=== PATIENT | female | born 1930 | race Caucasian/White ===

== ENCOUNTER → 2016-12-02 | Outpatient (CLI) | payer MEDICARE, OTHER ==
--- NOTE | 2016-12-02 12:47 | MR ---
EXAMINATION TYPE: MR lumbar spine wo con DATE OF EXAM: 12/02/2016 11:33 AM COMPARISON: NONE HISTORY: Back pain and leg pain TECHNIQUE: Multiplanar, multisequence images of the lumbar spine were acquired. The rotoscoliotic curvature convex to the left. L1-L2: Severe disc desiccation noted. Moderate circumferential disc bulge greatest posteriorly with h ypertrophy of the ligamentum flavum and facet joint arthropathy resulting in high-grade central steno sis. Bilateral foraminal encroachment noted as well. L2-L3: Severe disc desiccation noted. Moderate circumferential disc bulge greatest posteriorly. Decom pressive laminectomy changes at L3. Effacement of the ventral thecal sac without shannan stenosis at th is time. Grade 1 anterolisthesis of L2 on L3 measuring 6 mm. Bilateral foraminal encroachment. L3-L4: Severe disc desiccation. Decompressive laminectomy changes noted. Posterocentral disc herniati on versus a granulation tissue. Effacement ventral thecal sac and bilateral lateral recess stenosis w ithout central stenosis. Bilateral foraminal encroachment. L4-L5: Moderate to severe disc desiccation. No significant herniation or protrusion. Hypertrophy of t he ligamentum flavum resulting in left lateral recess stenosis. Mild bilateral foraminal encroachment . No central stenosis. L5-S1: Moderate disc desiccation without herniation or bulge. No central stenosis. Facet joint arthro shweta with mild bilateral encroachment. Lumbar segments are intact. No paraspinal masses are identified. Conus medullaris has a normal appe arance. IMPRESSION: 1. Multilevel degenerative disc disease. 2. 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 3. Multilevel foraminal encroachment and lateral recess stenosis. See above.
== END | disposition home or self-care (01) ==
LOC: RADMRIMAIN 10:15
PROVIDERS: ATTEND Internal Medicine
DX: M48.06 Spinal stenosis, lumbar region (principal); M51.36 Other intervertebral disc degeneration, lumbar region; M99.73 Connective tissue and disc stenosis of intervertebral foramina of lumbar region
CPT/HCPCS: 72148

== ENCOUNTER → 2016-12-04 | Outpatient (CLI) | payer MEDICARE, OTHER ==
--- NOTE | 2016-12-04 17:28 | XR ---
EXAMINATION TYPE: XR chest 2V DATE OF EXAM: 12/04/2016 5:08 PM COMPARISON: 08/28/2015 HISTORY: Short of breath TECHNIQUE: Frontal and lateral views of the chest are obtained. FINDINGS: There is no heart failure nor confluent pneumonic infiltrate. There are no hilar masses. T horacic aorta is atheromatous. The bony thorax is intact. There is mild spurring in the thoracic spin e. IMPRESSION: No active cardiopulmonary disease. No change.
[2016-12-04 18:01] LABS: Calcium 9.6 mg/dL (8.4-10.2); Potassium 5.1 mmol/L (3.5-5.1)
== END | disposition home or self-care (01) ==
LOC: RADXRMAIN 16:45
PROVIDERS: ATTEND Nurse Practitioner Adult Health
DX: R06.02 Shortness of breath (principal); I10 Essential (primary) hypertension
CPT/HCPCS: 71020; 80048; 83880

== ENCOUNTER → 2017-02-10 | Outpatient (CLI) | payer MEDICARE, OTHER ==
--- NOTE | 2017-02-10 22:23 | US ---
EXAMINATION TYPE: US venous doppler duplex LE LT DATE OF EXAM: 02/10/2017 4:25 PM COMPARISON: NONE CLINICAL HISTORY: 87-year-old female lower left pain M79.662, Swelling R22.42. SIDE PERFORMED: Left TECHNIQUE: The lower extremity deep venous system is examined utilizing real time linear array sonog armando with graded compression, doppler sonography and color-flow sonography. FINDINGS: VESSELS IMAGED: External Iliac Vein (EIV) Common Femoral Vein Deep Femoral Vein Greater Saphenous Vein * Femoral Vein Popliteal Vein Small Saphenous Vein *-not seen Proximal Calf Veins (* superficial vessels) Left Leg: Appears negative for DVT IMPRESSION: No evidence for DVT within the left lower extremity imaged from the groin to the upper calf.
== END | disposition home or self-care (01) ==
LOC: RADUSWWP 15:47
PROVIDERS: ATTEND Physical Medicine & Rehabilitation
DX: R22.42 Localized swelling, mass and lump, left lower limb (principal); M79.662 Pain in left lower leg

== ENCOUNTER 2017-11-27 17:18 | Inpatient (IN) | payer MEDICARE, OTHER ==
[2017-11-27] MEDS ORDERED: PANTOPRAZOLE 40 MG/10 ML VIAL IVP STA (19:11)
[2017-11-27] MEDS ORDERED: SODIUM CHLORIDE 0.9% 1,000 ML IV STA (19:11)
--- NOTE | 2017-11-27 19:13 | ED ---
GI Bleed HPI - General Chief complaint: GI Bleed Stated complaint: RECTAL BLEEDING Time Seen by Provider: 11/27/17 18:52 Source: patient, RN/MD, RN notes reviewed Mode of arrival: wheelchair Limitations: no limitations - History of Present Illness Initial comments: This is a 87-year-old female with no prior history of GI bleed who had the onset yesterday of rectal bleeding and more today. He states was bright red blood. She has lower crampy abdominal pain is moderate in severity no nausea vomiting fevers chills sweats or other symptoms. She was seen by her doctor today and the office he did perform a rectal exam was was indicative of a lower GI bleed. The concern is possibly for diverticular etiology. No other complaints he did have no complaints of lightheadedness dizziness or generalized weakness at this time. She states the pain is dull and achy at this time. No dysuria no hematuria. MD complaint: gross hematochezia - Related Data Home Medications Medication Instructions Recorded Confirmed Calcium Carbonate/Vitamin D3 1 tab PO DAILY@1200 08/27/15 11/27/17 [Calcium 600-Vit D3 400 Tablet] Darifenacin Hydrobromide [Enablex] 15 mg PO DAILY@2200 08/27/15 11/27/17 Enalapril [Vasotec] 2.5 mg PO DAILY@1200 08/27/15 11/27/17 Metoprolol Succinate [Toprol XL] 25 mg PO DAILY@1730 08/27/15 11/27/17 Furosemide [Lasix] 20 mg PO BID@0700,1730 11/27/17 11/27/17 Insulin Lispro Protamin/Lispro 17 unit SQ DAILY@1800 11/27/17 11/27/17 [humaLOG Mix 75-25 Kwikpen] Insulin Lispro Protamin/Lispro 20 unit SQ QAM 11/27/17 11/27/17 [humaLOG Mix 75-25 Kwikpen] Metoprolol Succinate (ER) [Toprol 50 mg PO DAILY@0700 11/27/17 11/27/17 XL] Spironolactone [Aldactone] 12.5 mg PO DAILY@0700 11/27/17 11/27/17 Warfarin [Coumadin] 5 mg PO DAILY@2200 02/16/18 02/16/18 Previous Rx's Medication Instructions Recorded Pravastatin Sodium [Pravachol] 40 mg PO DAILY@1730 tab 08/29/15 Allergies Allergy/AdvReac Type Severity Reaction Status Date / Time No Known Allergies Allergy Verified 11/27/17 19:09 Review of Systems ROS Statement: Those systems with pertinent positive or pertinent negative responses have been documented in the HPI. ROS Other: All systems not noted in ROS Statement are negative. Past Medical History Past Medical History: Atrial Fibrillation, Diabetes Mellitus, Hyperlipidemia, Hypertension, Osteoarthritis (OA) Additional Past Medical History / Comment(s): 06-27-15 UTI-E COLI/PROTEUS MIRABILIS, BACK PAIN, LUMBAR RADICULOPATHY L3, MIGRAINES, CONGENTIAL HEART MURMUR(NEEDS PROPHYLACTIC ABX), BOWEL INFECTION POST COLONOSCOPY 2003, STRESS INCONT OF URINE History of Any Multi-Drug Resistant Organisms: None Reported Past Surgical History: Adenoidectomy, Appendectomy, Back Surgery, Bladder Surgery, Tonsillectomy Additional Past Surgical History / Comment(s): .T hip REPLACEMNT,LT knee replacement, LAMINECTOMY, EPIDURAL INJECTIONS, ADAMARIS CATARACTS,SPURS REMOVED FROM SPINE. Past Anesthesia/Blood Transfusion Reactions: No Reported Reaction Past Psychological History: No Psychological Hx Reported Smoking Status: Never smoker Past Alcohol Use History: None Reported Past Drug Use History: None Reported - Past Family History Father Family Medical History: Seizure Disorder Mother Family Medical History: Congestive Heart Failure (CHF), Diabetes Mellitus General Exam - General Exam Comments Initial Comments: This is a well-developed well-nourished awake alert oriented 3 female Limitations: no limitations General appearance: alert, in no apparent distress Head exam: Present: atraumatic, normocephalic, normal inspection Eye exam: Present: normal appearance, PERRL, EOMI. Absent: scleral icterus, conjunctival injection, periorbital swelling ENT exam: Present: normal exam, mucous membranes moist Neck exam: Present: normal inspection. Absent: tenderness, meningismus, lymphadenopathy Respiratory exam: Present: normal lung sounds bilaterally. Absent: respiratory distress, wheezes, rales, rhonchi, stridor Cardiovascular Exam: Present: regular rate, normal rhythm, normal heart sounds. Absent: systolic murmur, diastolic murmur, rubs, gallop, clicks GI/Abdominal exam: Present: soft, tenderness (Very mild lower abdominal tenderness no guarding rebound), normal bowel sounds. Absent: distended, guarding, rebound, rigid, bruit, pulsatile mass, hernia Rectal exam: Present: deferred Extremities exam: Present: normal inspection, full ROM, normal capillary refill. Absent: tenderness, pedal edema, joint swelling, calf tenderness Back exam: Present: normal inspection Neurological exam: Present: alert, oriented X3, CN II-XII intact Psychiatric exam: Present: normal affect, normal mood Skin exam: Present: warm, dry, intact, normal color. Absent: rash Course Vital Signs 11/27/17 11/27/17 11/27/17 17:35 19:30 20:45 Temperature 97.4 F L 97.6 F Pulse Rate 61 71 81 Respiratory 16 18 18 Rate Blood Pressure 107/47 123/70 108/53 O2 Sat by Pulse 98 99 98 Oximetry Medical Decision Making - Medical Decision Making I did discuss findings with the patient had virtually discuss case with Dr. Bocanegra patient be admitted she does demonstrate an elevated INR she'll be placed on 2.5 mg of vitamin K by mouth we will hold her Coumadin tonight and check her hemoglobin every 6 hours. - Lab Data Result diagrams: 11/27/17 19:35 11/27/17 19:35 Lab Results 11/27/17 11/27/17 11/27/17 Range/Units 19:35 19:35 19:35 WBC 12.3 H (3.8-10.6) k/uL RBC 4.42 (3.80-5.40) m/uL Hgb 13.7 (11.4-16.0) gm/dL Hct 41.5 (34.0-46.0) % MCV 94.0 (80.0-100.0) fL MCH 30.9 (25.0-35.0) pg MCHC 32.9 (31.0-37.0) g/dL RDW 12.9 (11.5-15.5) % Plt Count 218 (150-450) k/uL Neutrophils % 70 % Lymphocytes % 20 % Monocytes % 7 % Eosinophils % 2 % Basophils % 0 % Neutrophils # 8.6 H (1.3-7.7) k/uL Lymphocytes # 2.4 (1.0-4.8) k/uL Monocytes # 0.8 (0-1.0) k/uL Eosinophils # 0.3 (0-0.7) k/uL Basophils # 0.0 (0-0.2) k/uL PT (9.0-12.0) sec INR (<1.2) APTT (22.0-30.0) sec Sodium 138 (137-145) mmol/L Potassium 4.3 (3.5-5.1) mmol/L Chloride 97 L (98-107) mmol/L Carbon Dioxide 29 (22-30) mmol/L Anion Gap 12 mmol/L BUN 29 H (7-17) mg/dL Creatinine 1.66 H (0.52-1.04) mg/dL Est GFR (MDRD) Af Amer 35 (>60 ml/min/1.73 sqM) Est GFR (MDRD) Non-Af 29 (>60 ml/min/1.73 sqM) Glucose 133 H (74-99) mg/dL Calcium 10.7 H (8.4-10.2) mg/dL Total Bilirubin 0.9 (0.2-1.3) mg/dL AST 29 (14-36) U/L ALT 29 (9-52) U/L Alkaline Phosphatase 91 (38-126) U/L Total Creatine Kinase 104 (30-135) U/L CK-MB (CK-2) 1.4 (0.0-2.4) ng/mL CK-MB (CK-2) Rel Index 1.3 Troponin I 0.013 (0.000-0.034) ng/mL Total Protein 7.0 (6.3-8.2) g/dL Albumin 4.1 (3.5-5.0) g/dL Blood Type Blood Type Recheck Antibody Screen Spec Expiration Date 11/27/17 11/27/17 Range/Units 19:35 19:35 WBC (3.8-10.6) k/uL RBC (3.80-5.40) m/uL Hgb (11.4-16.0) gm/dL Hct (34.0-46.0) % MCV (80.0-100.0) fL MCH (25.0-35.0) pg MCHC (31.0-37.0) g/dL RDW (11.5-15.5) % Plt Count (150-450) k/uL Neutrophils % % Lymphocytes % % Monocytes % % Eosinophils % % Basophils % % Neutrophils # (1.3-7.7) k/uL Lymphocytes # (1.0-4.8) k/uL Monocytes # (0-1.0) k/uL Eosinophils # (0-0.7) k/uL Basophils # (0-0.2) k/uL PT 66.0 H (9.0-12.0) sec INR 7.2 H* (<1.2) APTT 41.9 H (22.0-30.0) sec Sodium (137-145) mmol/L Potassium (3.5-5.1) mmol/L Chloride (98-107) mmol/L Carbon Dioxide (22-30) mmol/L Anion Gap mmol/L BUN (7-17) mg/dL Creatinine (0.52-1.04) mg/dL Est GFR (MDRD) Af Amer (>60 ml/min/1.73 sqM) Est GFR (MDRD) Non-Af (>60 ml/min/1.73 sqM) Glucose (74-99) mg/dL Calcium (8.4-10.2) mg/dL Total Bilirubin (0.2-1.3) mg/dL AST (14-36) U/L ALT (9-52) U/L Alkaline Phosphatase (38-126) U/L Total Creatine Kinase (30-135) U/L CK-MB (CK-2) (0.0-2.4) ng/mL CK-MB (CK-2) Rel Index Troponin I (0.000-0.034) ng/mL Total Protein (6.3-8.2) g/dL Albumin (3.5-5.0) g/dL Blood Type A Positive Blood Type Recheck A Pos Antibody Screen NEGATIVE Spec Expiration Date 11/30/2017 - 0177 - Radiology Data Radiology results: report reviewed (I did review the imaging and reports no acute findings.), image reviewed Disposition Clinical Impression: GI bleed, Coumadin toxicity Disposition: ADMITTED IP TO THIS [facility] Condition: Stable Referrals: Garcia Bocanegra MD [Primary Care Provider] - 1-2 days
[2017-11-27 19:43] LABS: Basophils % (A) 0 %; Eosinophils # (A) 0.3 k/uL (0-0.7); Eosinophils % (A) 2 %; HCT 41.5 % (34.0-46.0); HGB 13.7 gm/dL (11.4-16.0); Lymphocytes # (A) 2.4 k/uL (1.0-4.8); Lymphocytes % (A) 20 %; MCH 30.9 pg (25.0-35.0); MCHC 32.9 g/dL (31.0-37.0); Mean Platelet Volume 7.9; Monocytes # (A) 0.8 k/uL (0-1.0); Monocytes % (A) 7 %; Neutrophils # (A) 8.6 k/uL (1.3-7.7); Neutrophils % (A) 70 %; Platelet Count 218 k/uL (150-450); RBC 4.42 m/uL (3.80-5.40); RDW 12.9 % (11.5-15.5); WBC 12.3 k/uL (3.8-10.6)
[2017-11-27 20:00] LABS: Albumin 4.1 g/dL (3.5-5.0); Calcium 10.7 mg/dL (8.4-10.2); Potassium 4.3 mmol/L (3.5-5.1); Total Bilirubin 0.9 mg/dL (0.2-1.3)
[2017-11-27 20:04] LABS: Partial Thromboplastin Time 41.9 sec (22.0-30.0)
[2017-11-27 20:09] LABS: INR 7.2 (<1.2)
[2017-11-27 20:12] LABS: Creatine Kinase MB 1.4 ng/mL (0.0-2.4); Troponin I 0.013 ng/mL (0.000-0.034)
--- NOTE | 2017-11-27 20:34 | XR ---
EXAMINATION TYPE: XR abdomen acute w cxr DATE OF EXAM: 11/27/2017 COMPARISON: NONE HISTORY: Abdominal pain TECHNIQUE: 4 views FINDINGS: Lungs are clear of consolidation. Heart is probably enlarged. There is no pleural effusion. There is no heart failure. There is thoracolumbar levoscoliosis. Bowel gas pattern is normal. There is no sign of intestinal obstruction or pneumoperitoneum. Fecal pa ttern is normal. There are no pathologic calcifications over the kidneys. I see no sign of a mass. Th ere is a right hip prosthesis. IMPRESSION: Cardiomegaly. No active cardiopulmonary disease. Nonacute abdomen.
[2017-11-27] MEDS ORDERED: PHYTONADIONE ORAL 5 MG/5 ML ORAL.SYRG PO STA (20:47)
[2017-11-27] MEDS ORDERED: NALOXONE 0.4 MG/ML 1 ML VIAL IV PRN (20:54)
[2017-11-27 22:20] LABS: Glucose,Whole Blood 119 mg/dL (75-99)
[2017-11-27 22:28] VITALS: BMI 34.4
[2017-11-27] MEDS: OXYBUTYNIN XL 5 MG TAB.ER.24 PO SCH (22:50)
[2017-11-27] MEDS: SODIUM CHLORIDE 0.9% 1,000 ML IV SCH (22:50)
[2017-11-27] MEDS: INSULIN ASPART 100 UNIT/ML 1 ML 10 ML VIAL SQ SCH (22:51)
[2017-11-27] MEDS: FAMOTIDINE 20 MG TAB PO SCH (22:54)
--- NOTE | 2017-11-28 00:04 | HP ---
HISTORY AND PHYSICAL ATTENDING PHYSICIAN: Dr. Ana M Bocanegra. CHIEF COMPLAINT: Rectal bleeding. HISTORY OF PRESENT ILLNESS: This 87-year-old female presents with a complaint of having rectal bleeding. The patient states she had a bowel movement yesterday which was normal soft stool. It was a fairly good large stool. The caliber was small and stool was soft. The patient later on in the evening had the urge to go have a bowel movement. When she went, it was nothing but blood. The patient said she had another bowel movement this morning which was a small amount, but there was mostly blood. The patient does have some lower abdominal cramping. No other associated symptoms of fever, chills. She has noted her blood sugars to be elevated for the past 2 days. The patient denies any other symptoms, symptoms of chest pain, palpitation, dizziness. PAST MEDICAL HISTORY: Primarily significant for diabetes mellitus for the past 21 years, hypertension for about the same duration, chronic atrial fibrillation. The patient is on anticoagulation with Coumadin. No history of any malignancy, lung disease, liver disease, kidney disease. No history of any ulcers, TB, hepatitis. No history of any diverticulosis, TB, hepatitis, rheumatic fever, myocardial infarction or CVA. Does have degenerative arthritis. Does have some peripheral neuropathy. The patient also has some symptoms of spinal stenosis. PAST SURGICAL HISTORY: Significant for tonsillectomy, appendectomy, bladder suspension surgery, left knee surgery, right total hip arthroplasty, cataract surgery, back surgery and lumbar back surgery. PERSONAL HISTORY: Never smoker. No alcohol. VACCINATION HISTORY: Annual flu vaccination for this season, previous Pneumovax and Zostavax. ALLERGIES: None. MEDICATIONS: Include: 1. Humalog 75/25, 22 units in the morning and 17 units in the evening. 2. Coumadin 5 mg daily. 3. Enablex 15 mg daily. 4. Aldactone 12.5 mg daily. 5. Pravastatin 40 mg daily. 6. Enalapril 2.5 mg daily. 7. Calcium carbonate daily. 8. Metoprolol succinate. The patient takes 25 mg in the evening and 50 mg in the morning. 9. Lasix 20 mg b.i.d. SOCIAL HISTORY: Patient , lives with her spouse. FAMILY MEDICAL HISTORY: Father at age 68. He had a history of epilepsy. Mother at age of 65. She had history of diabetes mellitus, coronary artery disease. A sister at the age of 80. She had history of carcinoma of the lung. A brother at the age of 80, had a history of COPD, diabetes mellitus and CHF. The patient has a son, 68, a history of coronary artery disease. Four daughters in good health. REVIEW OF SYSTEMS: NEURO: Denies any headaches, dizziness. No double vision, blurred vision. No symptoms of TIA, syncope, seizures. PSYCH: No anxiety, depression. CARDIAC: Denies chest pain, angina, palpitation. RESPIRATORY: Denies shortness of breath. Does have dyspnea on exertion with limited activity. No angina, palpitations. Mild cough from recent tracheobronchitis, treated. No chest pain. GI: No nausea, vomiting. Some lower abdominal cramping and bloody stool and rectal bleeding. : No symptoms of dysuria, hematuria. Does have frequency, urgency, incontinence. No vaginal bleeding. EXTREMITIES: Some chronic pain, lower extremities. Chronic arthritic pains in the knee joints. CONSTITUTIONAL: No fever, chills. HEMATOLOGICAL: Bleeding. ENDOCRINE: Blood sugars elevated the past 2 days. PHYSICAL EXAMINATION: Pleasant female in no distress. Vital signs revealed temperature 97.4, pulse 61, respirations 16, blood pressure 107/47, pulse ox of 98% on room air. HEENT: Normocephalic. Pupils are reactive. Nostrils clear. Oral cavity is moist. Neck reveals no JVD, carotid bruits, thyromegaly. CHEST: Clear to auscultation, percussion. CARDIAC: Irregularly irregular rhythm. Systolic murmur 2/6 at apex. Distant heart sounds. ABDOMEN: Protuberant, soft. Bowel sounds active. Umbilical hernia present. Rectal reveals normal sphincter tone. Small amount of stool in the rectum, but the patient has significant blood on the finger. Extremities reveal chronic trace edema. NEUROLOGIC: Awake, alert, oriented, well-coordinated movements. LABORATORY ASSESSMENT: A CBC which shows a white count of 12.3, hemoglobin 13.7. INR was 7.2. BUN 29, creatinine 1.66, glucose 133, calcium 10.7. Normal hepatic enzymes. Normal troponin. Albumin 4.1. Chest x-ray reveals cardiomegaly, no active cardiopulmonary disease and abdomen was unremarkable. ASSESSMENT: 1. Lower gastrointestinal bleeding, probably diverticular bleed. 2. Hyper anticoagulated status. 3. History of chronic atrial fibrillation. 4. Diabetes mellitus. 5. Coronary artery disease. 6. Chronic urinary incontinence. PLAN: The patient at present is stable. Continue present medical regimen. Patient's condition discussed with the patient and spouse. The patient will be hydrated. CBC will be followed. May require lower colon evaluation only if she continues to bleed significantly. At her age, it would be difficult for a colonoscopic exam. The patient's condition discussed with the patient and spouse. Prognosis guarded. MMODL / IJN: [id number] /
[2017-11-28 06:17] LABS: Glucose,Whole Blood 143 mg/dL (75-99)
[2017-11-28] MEDS: INSULIN ASPART 100 UNIT/ML 1 ML 10 ML VIAL SQ SCH ×4 (06:45→20:59)
[2017-11-28] MEDS: SPIRONOLACTONE 25 MG TAB PO SCH (06:46)
[2017-11-28] MEDS: METOPROLOL SUCCINATE (ER) 50 MG TAB.ER.24H PO SCH ×2 (06:46→17:35)
[2017-11-28 06:48] LABS: INR 4.3 (<1.2); Prothrombin Time 38.6 sec (9.0-12.0)
[2017-11-28 06:50] LABS: Basophils % (A) 1 %; Eosinophils # (A) 0.3 k/uL (0-0.7); Eosinophils % (A) 3 %; HCT 36.8 % (34.0-46.0); HGB 11.9 gm/dL (11.4-16.0); Lymphocytes % (A) 25 %; MCH 30.8 pg (25.0-35.0); MCHC 32.3 g/dL (31.0-37.0); MCV 95.2 fL (80.0-100.0); Mean Platelet Volume 8.1; Monocytes # (A) 0.6 k/uL (0-1.0); Monocytes % (A) 7 %; Neutrophils # (A) 5.2 k/uL (1.3-7.7); Neutrophils % (A) 62 %; Platelet Count 179 k/uL (150-450); RBC 3.86 m/uL (3.80-5.40); RDW 13.1 % (11.5-15.5); WBC 8.3 k/uL (3.8-10.6)
[2017-11-28] MEDS ORDERED: FUROSEMIDE 20 MG TAB PO SCH (07:00)
[2017-11-28] MEDS: SODIUM CHLORIDE 0.9% 1,000 ML IV SCH ×4 (08:56→19:18)
[2017-11-28] MEDS: FAMOTIDINE 20 MG TAB PO SCH (08:57)
[2017-11-28] MEDS ORDERED: PHYTONADIONE ORAL 5 MG/5 ML ORAL.SYRG PO STA (10:49)
--- NOTE | 2017-11-28 11:05 | P.PN ---
Subjective Progress Note Date: 11/28/17 Principal diagnosis: Lower GI bleeding This 87-year-old female was admitted to the hospital yesterday with complaints of rectal bleeding. The patient had lower abdominal cramping pains but no other associated fever chills. A bowel movement the day prior to admission was normal. Patient has had no similar symptoms in the past. Patient is on anticoagulation with Coumadin for chronic atrial fibrillation. She does have chronic left ventricular failure with dyspnea on exertion secondary to diastolic dysfunction. The patient continues to have small amount of blood per rectum. She denies any other associated symptoms. She has no further abdominal pains. Patient has been on clear liquids. He did have some postural hypotensive spell this morning when he stood she was set up. She did not feel well and her blood pressure was down to 90. The patient hemoglobin has dropped from 13.7-11.9 today. INR is down from 7.2-4.3. Blood sugars remained stable. Her BUN 29 creatinine 1.66 yesterday. Patient does not appear to be in any distress. REVIEW OF SYSTEMS: Neuro: Denies any headache at some dizziness when she sat up Psych: Denies anxiety depression feels oriented. Cardiac: Denies chest pain and angina palpitations. Respiratory: Denies shortness of breath cough. GI: Denies any nausea vomiting abdominal pain. Small rectal blood ooz. : Denies any dysuria hematuria has chronic urinary incontinence Extremities: Denies pain. No edema. Skin: Intact. Constitutional: Denies any fever or chills. FEELS cold Objective - Vital Signs Vital signs: Vital Signs Temp 97.8 F 11/28/17 08:00 Pulse 73 11/28/17 09:15 Resp 20 11/28/17 08:00 BP 107/61 11/28/17 09:15 Pulse Ox 95 11/28/17 08:00 Intake & Output 11/27/17 11/28/17 11/28/17 18:59 06:59 18:59 Intake Total 620 Balance 620 Weight 83.007 kg 85.5 kg Intake: Oral 620 Other: Voiding Method Toilet Bedpan # Voids 1 1 # Bowel Movements 1 PHYSICAL EXAMINATION: Cooperative, at present in no acute distress. HEENT: Neck supple. No JVD. Chest: Clear to auscultation percussion. Cardiac: Normal S1-S2 no gallops patient has irregularly irregular rhythm systolic murmur left sternal border. Abdomen Soft[bowel sounds present Extremities:Trace chronic edema no tenderness Neurologically:Awake, alert, oriented with well-coordinated movements - Labs CBC & Chem 7: 11/28/17 06:21 11/27/17 19:35 Labs: Abnormal Lab Results - Last 24 Hours (Table) 11/27/17 11/27/17 11/27/17 Range/Units 19:35 19:35 19:35 WBC 12.3 H (3.8-10.6) k/uL Neutrophils # 8.6 H (1.3-7.7) k/uL PT 66.0 H (9.0-12.0) sec INR 7.2 H* (<1.2) APTT 41.9 H (22.0-30.0) sec Chloride 97 L (98-107) mmol/L BUN 29 H (7-17) mg/dL Creatinine 1.66 H (0.52-1.04) mg/dL Glucose 133 H (74-99) mg/dL POC Glucose (mg/dL) (75-99) mg/dL Calcium 10.7 H (8.4-10.2) mg/dL 11/27/17 11/28/17 11/28/17 Range/Units 22:19 06:15 06:21 WBC (3.8-10.6) k/uL Neutrophils # (1.3-7.7) k/uL PT 38.6 H (9.0-12.0) sec INR 4.3 H (<1.2) APTT (22.0-30.0) sec Chloride (98-107) mmol/L BUN (7-17) mg/dL Creatinine (0.52-1.04) mg/dL Glucose (74-99) mg/dL POC Glucose (mg/dL) 119 H 143 H (75-99) mg/dL Calcium (8.4-10.2) mg/dL Assessment and Plan Assessment: ASSESSMENT: 1. Acute lower GI bleeding. 2. Hyperanticoagulated status. 3. Chronic atrial fibrillation. 4. 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 5. 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 7. Chronic kidney disease stage III. 8. Acute on chronic renal failure 9. Chronic urinary incontinence 10. Degenerative arthritis. PLAN: Continue present medical regimen. Patient be given IV fluids. We'll recheck CBC in the morning patient will be given an extra dose of vitamin K 1.25 mg by mouth expect INR to be significantly down by then patient also will have renal status checked tomorrow. Patient's condition is discussed with the patient's daughter in detail. Presumed bleeding is probably a diverticular bleed. Patient at present will not be subjected to any colonoscopic evaluation. If she continues to bleed significantly or she has recurrent episodes of bleeding consider colonoscopic evaluation. General condition is guarded prognosis is guarded. Time with Patient: Greater than 30
[2017-11-28] MEDS: LISINOPRIL 5 MG TAB PO SCH (11:53)
[2017-11-28 12:01] LABS: Glucose,Whole Blood 185 mg/dL (75-99)
[2017-11-28 15:28] LABS: Hemoglobin A1C 7.4 % (4.0-6.0)
[2017-11-28 16:53] LABS: Glucose,Whole Blood 166 mg/dL (75-99)
[2017-11-28] MEDS: PRAVASTATIN SODIUM 40 MG TAB PO SCH (17:36)
[2017-11-28 20:52] LABS: Glucose,Whole Blood 189 mg/dL (75-99)
[2017-11-28] MEDS: OXYBUTYNIN XL 5 MG TAB.ER.24 PO SCH (20:59)
[2017-11-29 06:16] LABS: Glucose,Whole Blood 143 mg/dL (75-99)
[2017-11-29] MEDS: INSULIN ASPART 100 UNIT/ML 1 ML 10 ML VIAL SQ SCH ×4 (06:40→20:54)
[2017-11-29] MEDS: METOPROLOL SUCCINATE (ER) 50 MG TAB.ER.24H PO SCH ×2 (06:40→17:11)
[2017-11-29] MEDS: SPIRONOLACTONE 25 MG TAB PO SCH (06:41)
[2017-11-29 07:09] LABS: HCT 36.6 % (34.0-46.0); MCH 31.6 pg (25.0-35.0); MCHC 32.8 g/dL (31.0-37.0); MCV 96.1 fL (80.0-100.0); Platelet Count 180 k/uL (150-450); RBC 3.81 m/uL (3.80-5.40); RDW 12.8 % (11.5-15.5); WBC 7.6 k/uL (3.8-10.6)
[2017-11-29 07:20] LABS: Calcium 9.4 mg/dL (8.4-10.2); Potassium 4.5 mmol/L (3.5-5.1)
[2017-11-29 07:28] LABS: INR 1.7 (<1.2); Prothrombin Time 15.4 sec (9.0-12.0)
[2017-11-29] MEDS: FAMOTIDINE 20 MG TAB PO SCH (08:21)
[2017-11-29] MEDS: SODIUM CHLORIDE 0.9% 1,000 ML IV SCH (08:28)
[2017-11-29 11:49] LABS: Glucose,Whole Blood 185 mg/dL (75-99)
[2017-11-29] MEDS: LISINOPRIL 5 MG TAB PO SCH (11:51)
[2017-11-29] MEDS ORDERED: BISMUTH SUBSALICYLATE 4,192 MG/240 ML BOTTLE PO PRN (14:46)
[2017-11-29] MEDS ORDERED: DIPHENOX-ATROP 2.5-0.025 MG 1 EACH TAB PO PRN (14:55)
--- NOTE | 2017-11-29 15:06 | P.PN ---
Subjective Progress Note Date: 11/29/17 This 87-year-old female was admitted to the hospital yesterday with complaints of rectal bleeding. The patient had lower abdominal cramping pains but no other associated fever chills. A bowel movement the day prior to admission was normal. Patient has had no similar symptoms in the past. Patient is on anticoagulation with Coumadin for chronic atrial fibrillation. She does have chronic left ventricular failure with dyspnea on exertion secondary to diastolic dysfunction. The patient continues to have small amount of blood per rectum. She denies any other associated symptoms. She has no further abdominal pains. Patient has been on clear liquids. He did have some postural hypotensive spell this morning when he stood she was set up. She did not feel well and her blood pressure was down to 90. The patient hemoglobin has dropped from 13.7-11.9 today. INR is down from 7.2-4.3. Blood sugars remained stable. Her BUN 29 creatinine 1.66 yesterday. Patient does not appear to be in any distress. REVIEW OF SYSTEMS: Neuro: Denies any headache at some dizziness when she sat up Psych: Denies anxiety depression feels oriented. Cardiac: Denies chest pain and angina palpitations. Respiratory: Denies shortness of breath cough. GI: Denies any nausea vomiting abdominal pain. Small rectal blood ooz. : Denies any dysuria hematuria has chronic urinary incontinence Extremities: Denies pain. No edema. Skin: Intact. Constitutional: Denies any fever or chills. FEELS cold 11/29/2017: 87-year-old admitted with lower GI bleeding. She has no further bleeding however had significant diarrhea today. A stat C. diff stool specimen is negative for C. difficile. Patient will be given Lomotil. Otherwise patient denies any symptoms of headaches dizziness chest pain shortness of breath and does feel fatigued. The patient has no abdominal pain. The areas mentioned above. Chronic urinary incontinence. Denies any pain in the lower extremities. Review patient's status with the family was sitting at the bedside. REVIEW OF SYSTEMS: Neuro: Denies any headaches dizziness. Psych: Denies anxiety depression feels oriented. Cardiac: Denies chest pain and angina palpitations. Respiratory: Denies shortness of breath cough. GI: Denies nausea vomiting or abdominal pain. Tolerating full liquids well. Multiple Stools with diarrhea but no blood : Denies dysuria hematuria chronic urinary incontinence. Extremities: Denies pain. No edema. Skin: Intact. Constitutional: No fever, chills. Objective - Vital Signs Vital signs: Vital Signs Temp 97.2 F L 11/29/17 11:26 Pulse 80 11/29/17 11:26 Resp 20 11/29/17 11:26 BP 118/70 11/29/17 11:26 Pulse Ox 98 11/29/17 11:26 Intake & Output 11/28/17 11/29/17 11/29/17 18:59 06:59 18:59 Intake Total 980 360 Output Total 200 Balance 980 160 Weight 85.7 kg Intake: Oral 980 360 Output: Urine 200 Other: Voiding Method Toilet Toilet Toilet # Voids 1 1 1 # Bowel Movements 1 1 PHYSICAL EXAMINATION: Cooperative, at present in no acute distress. HEENT: Neck supple. No JVD. Chest: Clear to auscultation percussion. Cardiac: Normal S1 and S2 irregularly irregular with rate controlled no gallops systolic murmur 2/6 left sternal border and apex murmur . Abdomen: Soft bowel sounds present. Extremities: No edema no tenderness Neurologically: Awake, alert, oriented with well-coordinated movements. - Labs CBC & Chem 7: 11/29/17 06:30 11/29/17 06:30 Labs: Abnormal Lab Results - Last 24 Hours (Table) 11/28/17 11/28/17 11/28/17 Range/Units 06:21 16:28 20:44 PT (9.0-12.0) sec INR (<1.2) Creatinine (0.52-1.04) mg/dL Glucose (74-99) mg/dL POC Glucose (mg/dL) 166 H 189 H (75-99) mg/dL Hemoglobin A1c 7.4 H (4.0-6.0) % 11/29/17 11/29/17 11/29/17 Range/Units 06:14 06:30 06:30 PT 15.4 H (9.0-12.0) sec INR 1.7 H (<1.2) Creatinine 1.19 H (0.52-1.04) mg/dL Glucose 158 H (74-99) mg/dL POC Glucose (mg/dL) 143 H (75-99) mg/dL Hemoglobin A1c (4.0-6.0) % 11/29/17 Range/Units 11:34 PT (9.0-12.0) sec INR (<1.2) Creatinine (0.52-1.04) mg/dL Glucose (74-99) mg/dL POC Glucose (mg/dL) 185 H (75-99) mg/dL Hemoglobin A1c (4.0-6.0) % Assessment and Plan Assessment: ASSESSMENT: 1. Diarrhea with C. difficile negative. 2. Status post lower GI bleeding, stopped. 3. Chronic atrial fibrillation. 4. Anticoagulative status with INR 1.7. 5. 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 6. Hypertension. 7. 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 8. Chronic kidney disease stage III 9. Acute renal failure secondary to dehydration and blood loss resolved PLAN: Continue present medical regimen. Patient's CBC is stable C. difficile is negative the patient presents stable we'll continue to monitor her CBC. Patient be given Lomotil. If hydration becomes an issue we'll restart IV. Patient condition discussed with the patient aspirin and daughter. Prognosis remains guarded potential discharge home within 48 hours.. Time with Patient: Greater than 30 (More than 50% time spent with family discussion)
[2017-11-29 17:01] LABS: Glucose,Whole Blood 171 mg/dL (75-99)
[2017-11-29] MEDS: PRAVASTATIN SODIUM 40 MG TAB PO SCH (17:11)
[2017-11-29 20:52] LABS: Glucose,Whole Blood 266 mg/dL (75-99)
[2017-11-29] MEDS: OXYBUTYNIN XL 5 MG TAB.ER.24 PO SCH (20:56)
[2017-11-30 05:20] VITALS: RESP 18
[2017-11-30] MEDS: SPIRONOLACTONE 25 MG TAB PO SCH (06:18)
[2017-11-30] MEDS: METOPROLOL SUCCINATE (ER) 50 MG TAB.ER.24H PO SCH (06:18)
[2017-11-30 06:19] LABS: Glucose,Whole Blood 145 mg/dL (75-99)
[2017-11-30 06:31] LABS: HCT 34.5 % (34.0-46.0); HGB 11.1 gm/dL (11.4-16.0); MCH 30.9 pg (25.0-35.0); MCHC 32.1 g/dL (31.0-37.0); MCV 96.3 fL (80.0-100.0); Mean Platelet Volume 7.9; Platelet Count 178 k/uL (150-450); RBC 3.58 m/uL (3.80-5.40); WBC 6.1 k/uL (3.8-10.6)
[2017-11-30 06:40] LABS: INR 1.4 (<1.2); Prothrombin Time 12.7 sec (9.0-12.0)
[2017-11-30] MEDS: INSULIN ASPART 100 UNIT/ML 1 ML 10 ML VIAL SQ SCH ×2 (06:40→12:02)
[2017-11-30] MEDS: FAMOTIDINE 20 MG TAB PO SCH (09:01)
[2017-11-30 11:13] VITALS: BP 121/59; PULSE 52; TEMP 96.6
[2017-11-30 11:49] LABS: Glucose,Whole Blood 249 mg/dL (75-99)
[2017-11-30] MEDS: LISINOPRIL 5 MG TAB PO SCH (12:02)
--- NOTE | 2017-12-13 14:27 | P.DS ---
Providers Date of admission: 11/27/17 20:56 Attending physician: Garcia Bocanegra Primary care physician: Garcia Bocanegra [facility] Course: This 87-year-old female was admitted to the hospital after evaluation in the office. Patient presented with complaints of rectal bleeding. The patient was noted to have evidence of rectal bleeding non-hemorrhoidal. It was suspected that she had probably diverticular bleeding. Patient was also significantly anticoagulated. Pro time was 66 with an INR of 7.2 at the time of admission. She was given small doses of vitamin K orally with the INR down to 1.4. The patient did not require any transfusions. She was 13.7 hemoglobin at the time of admission and it dropped to 11.1. Patient was feeling reasonably well mild weakness no orthostatic symptoms after the first day. The patient blood sugars adequately controlled. The time of discharge condition was stable. She does have chronic atrial fibrillation. She will. Not placed on Coumadin at the time of discharge. We will follow her up on the outpatient resume her Coumadin probably by december if no evidence of bleeding patient discharged home patient's condition was discussed with the patient's daughter including why we will not doing a coloscopy if patient's symptoms keep recurring then it will be indicated Final diagnosis to include 1. Lower GI bleeding 2. Anemia secondary to acute blood loss 3. Hyperanticoagulated status 4. Coumadin therapy 5. Chronic atrial fibrillation 6. Hypertension 7. Chronic congestive cardiac failure secondary diastolic dysfunction 8. 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 Chronic urinary incontinence 10. Chronic kidney disease stage III Patient Condition at Discharge: Stable Plan - Discharge Summary Discharge Rx Participant: No New Discharge Prescriptions: Continue Darifenacin Hydrobromide [Enablex] 15 mg PO DAILY@2200 Enalapril [Vasotec] 2.5 mg PO DAILY@1200 Calcium Carbonate/Vitamin D3 [Calcium 600-Vit D3 400 Tablet] 1 tab PO DAILY@ 1200 Metoprolol Succinate [Toprol XL] 25 mg PO DAILY@1730 Pravastatin Sodium [Pravachol] 40 mg PO DAILY@1730 tab Insulin Lispro Protamin/Lispro [humaLOG Mix 75-25 Kwikpen] 17 unit SQ DAILY@ 1800 Insulin Lispro Protamin/Lispro [humaLOG Mix 75-25 Kwikpen] 23 unit SQ QAM Spironolactone [Aldactone] 12.5 mg PO DAILY@0700 Metoprolol Succinate (ER) [Toprol XL] 50 mg PO DAILY@0700 Furosemide [Lasix] 20 mg PO BID@0700,1730 Discontinued Warfarin [Coumadin] 5 mg PO DAILY@2200 Discharge Medication List Calcium Carbonate/Vitamin D3 [Calcium 600-Vit D3 400 Tablet] 1 tab PO DAILY@ 1200 08/27/15 [History] Darifenacin Hydrobromide [Enablex] 15 mg PO DAILY@2200 08/27/15 [History] Enalapril [Vasotec] 2.5 mg PO DAILY@1200 08/27/15 [History] Metoprolol Succinate [Toprol XL] 25 mg PO DAILY@1730 08/27/15 [History] Pravastatin Sodium [Pravachol] 40 mg PO DAILY@1730 tab 08/29/15 [Rx] Furosemide [Lasix] 20 mg PO BID@0700,1730 11/27/17 [History] Insulin Lispro Protamin/Lispro [humaLOG Mix 75-25 Kwikpen] 17 unit SQ DAILY@ 1800 11/27/17 [History] Insulin Lispro Protamin/Lispro [humaLOG Mix 75-25 Kwikpen] 23 unit SQ QAM [History] Metoprolol Succinate (ER) [Toprol XL] 50 mg PO DAILY@0700 11/27/17 [History] Spironolactone [Aldactone] 12.5 mg PO DAILY@0700 11/27/17 [History] Follow up Appointment(s)/Referral(s): Garcia Bocanegra MD [Primary Care Provider] - 12/07/17 11:00 am [facility], [NON-STAFF] - As Needed Patient Instructions/Handouts: Rectal Bleeding (DC), Low Fiber Diet (DC), Acute Diarrhea (GEN) Discharge Disposition: HOME WITH HOME HEALTH SERVICES
== END 2017-11-30 16:00 | disposition home health service (06) | DRG 378 ==
LOC: EC 17:18 → 6SEL 20:56
PROVIDERS: ADMIT Internal Medicine; ATTEND Internal Medicine
DX: K57.91 Diverticulosis of intestine, part unspecified, without perforation or abscess with bleeding (principal); I50.32 Chronic diastolic (congestive) heart failure; N17.9 Acute kidney failure, unspecified; E11.22 Type 2 diabetes mellitus with diabetic chronic kidney disease; E11.42 Type 2 diabetes mellitus with diabetic polyneuropathy; I48.2 Chronic atrial fibrillation; I13.0 Hypertensive heart and chronic kidney disease with heart failure and stage 1 through stage 4 chronic kidney disease, or unspecified chronic kidney disease; E86.0 Dehydration; I25.10 Atherosclerotic heart disease of native coronary artery without angina pectoris; M19.91 Primary osteoarthritis, unspecified site; I95.1 Orthostatic hypotension; R32 Unspecified urinary incontinence; N18.3 Chronic kidney disease, stage 3 (moderate); Z79.01 Long term (current) use of anticoagulants; Z79.4 Long term (current) use of insulin; Z79.899 Other long term (current) drug therapy; Z96.641 Presence of right artificial hip joint
CPT/HCPCS: 36415; 74022; 80048; 80053; 82550; 82553; 83036; 84484; 85025; 85027; 85610; 85730; 86850; 86900; 86901; 87324; 96361; 96374; 99285